=== PATIENT | female | born 1995 | race Asian ===

== ENCOUNTER 2023-08-03 09:29 | Inpatient (IN) | payer OTHER ==
[2023-08-03] VITALS (23 sets, daily range): BP systolic 107–1202; BP diastolic 60–82; PULSE 72–134; TEMP 97.5–98.1
[~2023-08-03] VITALS: Ht 160 cm; Wt 73.6 kg
[2023-08-03] MEDS ORDERED: PROAIR HFA0.09 MG/AC IH (09:49)
[2023-08-03] MEDS ORDERED: LR 1,000 ML IV PRN (10:00)
--- NOTE | 2023-08-03 10:00 | NUR ---
0935- Pt arrives on unit ambulatory with spouse. Complaints of UCs since approx 0800 this morning. Pt into bathroom to change into gown. 0938- Pt into bed. EFM and TOCO on and tracing. Pt denies complications with . Denies VB/LOF. +FM per Pt. Assessments completed. 1000- IV start on attemt by MARLY Miranda, labs obtained. Veronica Castro CRNA called for epidural placement.
[2023-08-03] MEDS ORDERED: LR 1,000 ML IV SCH (10:15)
--- NOTE | 2023-08-03 10:15 | NUR ---
Bedside report given to MARLY Miranda. She assumes care at this time.
[2023-08-03] MEDS ORDERED: ROPivacaine PF 0.2% 200 ML IV ONE (10:27)
[2023-08-03 10:37] LABS: BASO # 0.1 K/mm3 (0.0-0.2); BASO % 0.6 % (0.0-2.0); EOS # 0.4 K/mm3 (0.0-0.7); EOS % 3.9 % (0.0-4.0); GRAN # 6.3 K/mm3 (1.4-6.5); GRAN % 65.2 % (42.2-75.2); HEMATOCRIT 39.5 % (37.0-47.0); HEMOGLOBIN 13.3 g/dl (12.5-16.0); LYMPH % 20.9 % (20.0-51.0); MEAN CELL VOLUME 87 fl (80.0-100.0); MEAN CORPUSCULAR HEMOGLOBIN 29 pg (27-31); MEAN CORPUSCULAR HGB CONC 34 g/dl (33.0-37.0); MEAN PLATELET VOLUME 10.3 fl (7.4-10.4); MONO # 0.9 K/mm3 (0.1-0.6); MONO % 8.8 % (1.7-9.3); PLATELET COUNT 221 K/mm3 (130-400); RED BLOOD COUNT 4.52 M/mm3 (4.10-5.30); REDCELL DISTRIBUTION WIDTH-CV 14.6 % (11.5-14.5)
--- NOTE | 2023-08-03 11:10 | NUR ---
AIRPLANE DISPATCHER BEDSIDE AT 1145 FOR EPIDURAL PLACEMENT. RN REMAINS BEDSIDE. PT SITTING ON SIDE OF BED FOR PLACEMENT. PT TOLERATED PROCEDURE WELL.
[2023-08-03] MEDS ORDERED: diphenhydrAMINE 50 MG/ML 1 ML VIAL IV PRN (11:15)
[2023-08-03] MEDS ORDERED: Ondansetron 4 MG/2 ML VIAL IV PRN (11:15)
[2023-08-03] MEDS ORDERED: Naloxone 0.4 MG/ML VIAL IV PRN ×2 (11:15→14:15)
[2023-08-03] MEDS ORDERED: diphenhydrAMINE 25 MG CAP PO PRN (11:15)
[2023-08-03] MEDS ORDERED: ePHEDrine 50 MG/10 ML VIAL IV PRN (11:15)
--- NOTE | 2023-08-03 12:06 | NUR ---
1145 MITESH ABERNATHY BEDSIDE TO ASSESS FOR AROM. PT COMFORTABLE FROM EPIDURAL PLACEMENT. 1147 AROM BY MITESH ABERNATHY AT THIS TIME WITH CLEAR/BLOOD-TINGED FLUID. BLOODY SHOW PRESENT UPON SVE. PT TOLERATED PROCEDURE WELL 1149 MITESH ABERNATHY OUT OF ROOM
--- NOTE | 2023-08-03 12:42 | NUR ---
1238 MITESH ABERNATHY UPDATED ON RECENT SVE, PRACTICE PUSH, FHTS, CTX PATTERN. ORDERS TO LABOR DOWN FOR THE TIME BEING AND WAIT TO START PUSHING UNTIL RN HEARS FROM MTIESH ABERNATHY. RN RBVO.
[2023-08-03] MEDS ORDERED: MOTRIN 800800 MG/TAB PO (14:13)
[2023-08-03] MEDS ORDERED: Acetaminophen 500 MG TAB PO PRN (14:15)
[2023-08-03] MEDS ORDERED: Ibuprofen 800 MG TAB PO SCH (14:15)
[2023-08-03] MEDS ORDERED: Albuterol 90 MCG/PUFF 8 GM MDI IH PRN (14:15)
[2023-08-03] MEDS ORDERED: Magnes Hydrox (MOM) 80 MG/ML 30 ML CUP PO PRN (14:15)
[2023-08-03] MEDS ORDERED: Measles/Mumps/Rubella Virus Vaccine Live w Diluent 0.5 ML VIAL SQ SCH (14:15)
[2023-08-03] MEDS ORDERED: oxyCODONE 5 MG TAB PO PRN (14:15)
[2023-08-03] MEDS ORDERED: Loratadine 10 MG TAB PO PRN (14:15)
[2023-08-03] MEDS ORDERED: Phenylephrine/Mineral Oil/Petrolatum 57 GM TUBE RC PRN (14:15)
[2023-08-03] MEDS ORDERED: Mag/Al Hydrox/Simeth Susp 30 ML CUP PO PRN (14:15)
[2023-08-03] MEDS ORDERED: Witch Hazel 50% Pads Bulk TUB TP PRN (14:15)
--- NOTE | 2023-08-03 14:32 | NUR ---
1334 MITESH ABERNATHY AND DELIVERY TEAM PAGED 1338 MITESH ABERNATHY BEDSIDE FOR DELIVERY 1346 DELIVERY OF VIABLE MALE INFANT VIA SPONTANEOUS VAGINAL DELIVERY 1348 PLACENTA DELIVERED
--- NOTE | 2023-08-03 16:20 | NUR ---
RN ASSISTS PT TO BATHROOM USING SIT TO STAND. PT UNABLE TO VOID AT THIS TIME. CAN CARE PERFORMED, GOWN CHANGED AND PT MOVED TO ROOM.
[2023-08-03] MEDS ORDERED: Sennosides/Docusate 8.6-50 MG TAB PO SCH (17:00)
[2023-08-03] MEDS ORDERED: traZODone 50 MG TAB PO PRN (21:00)
[2023-08-04 04:30] VITALS: BP 101/62; PULSE 73; TEMP 98
[2023-08-04 08:25] VITALS: BP 97/62; PULSE 84; TEMP 98.2
[2023-08-04] MEDS ORDERED: LR & Oxytocin 500 ML IV ONE (11:15)
--- NOTE | 2023-08-04 12:54 | NUR ---
Data: RN asked [employer] to skip this room during [employer] rounds because Patient was sleeping. Assessment: Patient sleeping. Plan of Care: Chaplains will remain available as needed/requested while Patient is admitted to this hospital.
== END 2023-08-04 17:00 | disposition home or self-care (01) | DRG 807 ==
LOC: LDRO 09:29 → LDR 10:06 → OB 16:18
PROVIDERS: ADMIT Obstetrics & Gynecology
PROC: 10E0XZZ Delivery of Products of Conception, External Approach (ICD-10-PCS; principal; 2023-08-03)
PROC: 0KQM0ZZ Repair Perineum Muscle, Open Approach (ICD-10-PCS; 2023-08-03)
PROC: 10907ZC Drainage of Amniotic Fluid, Therapeutic from Products of Conception, Via Natural or Artificial Opening (ICD-10-PCS; 2023-08-03)
DX: O99.344 Other mental disorders complicating childbirth (principal); Z37.0 Single live birth; Z3A.39 39 weeks gestation of pregnancy; F41.9 Anxiety disorder, unspecified; J45.909 Unspecified asthma, uncomplicated; O99.52 Diseases of the respiratory system complicating childbirth; O70.1 Second degree perineal laceration during delivery; Z14.8 Genetic carrier of other disease
CPT/HCPCS: J2590; J2795; J7120